=== PATIENT | female | born 1990 ===

== ENCOUNTER 2018-07-25 19:54 | Emergency (ER) | payer OTHER ==
--- NOTE | 2018-07-25 20:14 | EDPHY ---
H & P Time Seen by Provider: 07/25/18 20:02 HPI/ROS: CHIEF COMPLAINT: "I think I have frostbite" HISTORY OF PRESENT ILLNESS: 28-year-old female generally healthy, no vasculopathy history, presents to the ER via private vehicle complaining of concerns over frostbite to her bilateral toes. Today, the patient biked from [place] to [facility] where she summitted [facility] [place] and biked back to [place]. She wore non waterproof beats. She went home, took off her boots noticed violaceous discoloration to all 10 toes and comes to the ER. Tetanus is up-to-date REVIEW OF SYSTEMS: 10 systems reviewed and negative with the exception of the elements mentioned in the history of present illness PAST MEDICAL & SURGICAL HISTORY: No pertinent medical or surgical history . No history of vasculopathy. Up-to-date tetanus. 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 Appears to be in no acute distress. Smiling. 2) HEAD: Normocephalic, atraumatic 3) HEENT: Pupils equal, round, reactive to light bilaterally. Sclera anicteric. Nasopharynx, oropharynx, clear, no lesions. Moist Mucous membranes. Tip of nose shows no evidence of frostbite or cano nip. Ears show no evidence of frostbite or cano nip 4) NECK: Full range of motion, no meningeal signs. 5) LUNGS: Clear auscultation bilaterally, no wheezes, no rhonchi, no retractions. 6) HEART: Regular rate and rhythm, no murmur, no heave, no gallop. 7) ABDOMEN: No guarding, no rebound, no focal tenderness, negative McBurney's, negative Oden's, negative Rovsing's, negative peritoneal sign, 8) MUSCULOSKELETAL: Bilateral hands and fingers are normal coloration. Bilateral feet: Violaceous coloration to all 10 toes with positive sensation, no blistering. No evidence of cellulitis. No crepitus. 9) BACK: , no visual or palpable abnormality. 10) SKIN: No rash, no petechiae. 11) Psychiatric: Patient is oriented X 3, there is no agitation. DIFFERENTIAL DIAGNOSIS: In no particular order including but not limited to frostbite, cano nip, cellulitis Smoking Status: Never smoked Constitutional: Initial Vital Signs Temperature (C) 36.4 C 07/25/18 19:58 Heart Rate 93 07/25/18 19:58 Respiratory Rate 16 07/25/18 19:58 Blood Pressure 128/83 H 07/25/18 19:58 O2 Sat (%) 98 07/25/18 19:58 O2 Delivery Mode Room Air Allergies/Adverse Reactions: No Known Allergies Allergy (Unverified 07/25/18 19:58) Home Medications: Medication Instructions Recorded Control 07/25/18 MDM/Departure - MDM Medications Given: Discontinued Medications Aspirin (Aspirin) 325 mg PO EDNOW ONE Stop: 07/25/18 21:33 Last Admin: 07/25/18 21:46 Dose: 325 mg ED Course/Re-evaluation: 8:14 p.m.: Patient has evidence of frostbite to all 10 digits of her feet. Also seen and examined by Dr Eagle in ER. Consultation with Dr. David Vazquez who will come to the ER to evaluate the patient. 9:25 p.m.: Dr. David Vazquez has evaluated the patient. He recommended full strength aspirin now, then daily baby aspirin and follow-up. He also recommended no showers only baths. Will plan on giving the patient follow-up information with the wound clinic and Dr. Orin Leon for wound care wound care and wound follow-up. Patient instructed to not let her feet freeze or become cold again. Definitely if she develops any open wounds she needs to seek immediate medical attention. She has no open wounds or blisters at this time. While in the ER the patient's feet have been kept elevated and warm, she was given oral hydration. She feels comfortable being discharged. - Depart Disposition: Home, Routine, Self-Care Clinical Impression: Frostbite of feet, bilateral Qualifiers: Encounter type: initial encounter Qualified Code(s): T33.821A - Superficial frostbite of right foot, initial encounter; T33.822A - Superficial frostbite of left foot, initial encounter; T33.822A - Superficial frostbite of left foot, initial encounter Condition: Good Instructions: Frostbite (ED) Additional Instructions: Do not like your feet get cold, recommend you to only take baths not showers, if your feet develop open wounds return to the ER. I am referring you to Dr. Orin Leon , a general surgeon who does wound care and she may be able to you into the wound care clinic. Today you were seen the ER by surgeon Dr. David Vazquez as well. I recommend you take a daily baby aspirin as well. Referrals: Orin Leon MD [Medical Doctor] - 2-3 days, call for appt.
[2018-07-25] MEDS ORDERED: ASPIRIN 325 MG TAB PO ONE (21:32)
[2018-07-25 21:58] VITALS: BP 118/67
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
== END 2018-07-25 21:58 | disposition home or self-care (01) ==
DX: T33.831A Superficial frostbite of right toe(s), initial encounter (principal); T33.832A Superficial frostbite of left toe(s), initial encounter; X31.XXXA Exposure to excessive natural cold, initial encounter; Y93.55 Activity, bike riding; Y92.828 Other wilderness area as the place of occurrence of the external cause; Y99.9 Unspecified external cause status